=== PATIENT | male | born 1970 | race Hispanic/Latino ===

== ENCOUNTER 2021-12-09 16:19 | Inpatient (IN) | payer OTHER ==
[~2021-12-09] VITALS: Ht 177.8 cm; Wt 98.4 kg
[2021-12-09 17:37] LABS: BASOPHILS # (AUTO) 0.1 (0.0-0.1); EOSINOPHILS # (AUTO) 0.2 (0.0-0.4); EOSINOPHILS % 2.2 % (0.0-6.0); HEMATOCRIT 42.8 % (38.2-49.6); HEMOGLOBIN 13.6 g/dL (14.0-18.0); LYMPHOCYTES # (AUTO) 1.9 (1.0-3.2); LYMPHOCYTES % 20.5 % (18.0-39.1); MEAN CORPUSCULAR HEMOGLOBIN 34.5 pg (28-32); MEAN CORPUSCULAR HGB CONC 31.8 g/dL (31-35); MEAN CORPUSCULAR VOLUME 108.6 fL (81-99); MONOCYTES # (AUTO) 0.6 (0.2-0.8); MONOCYTES % 6.8 % (4.4-11.3); NEUTROPHILS # (AUTO) 6.5 (2.1-6.9); PLATELET COUNT 307 x10e3/uL (140-360); RED BLOOD COUNT 3.94 x10e6/uL (4.3-5.7); RED CELL DISTRIBUTION WIDTH 13.7 % (11.7-14.4)
[2021-12-09 18:02] LABS: LIPASE 20 U/L (8-78)
[2021-12-09 18:04] LABS: ALANINE AMINOTRANSFERASE 53 IU/L (0-55); ALBUMIN 3.4 g/dL (3.5-5.0); ALKALINE PHOSPHATASE 100 IU/L (40-150); ANION GAP 14.3 mmol/L (8-16); BLOOD UREA NITROGEN 6 mg/dL (7-26); BUN/CREATININE RATIO 6 (6-25); CALCIUM 9.3 mg/dL (8.4-10.2); CARBON DIOXIDE 25 mmol/L (22-29); CHLORIDE 107 mmol/L (98-107); CREATINE KINASE 62 IU/L (30-200); CREATININE, SERUM 1.01 mg/dL (0.72-1.25); GLUCOSE 124 mg/dL (74-118); POTASSIUM 4.3 mmol/L (3.5-5.1); SODIUM 142 mmol/L (136-145)
[2021-12-09 18:12] LABS: AMPHETAMINES SCREEN,URINE NEGATIVE (NEGATIVE); BENZODIAZEPINES SCREEN,URINE POSITIVE (NEGATIVE); PHENCYCLIDINE SCREEN,URINE NEGATIVE (NEGATIVE)
[2021-12-09] MEDS: SODIUM CHLORIDE 0.9% 1000ML 1,000 ML IV SCH ×2 (20:05→21:25)
[2021-12-09] MEDS ORDERED: SODIUM CHLORIDE 0.9% 1000ML 1,000 ML IV STA (20:06)
[2021-12-09] MEDS ORDERED: DIAZEPAM INJ 5 MG/ML 2 ML IV ONE (20:15)
[2021-12-09] MEDS: ONDANSETRON HCL INJ 2MG/ML 2ML 2 MG/ML VIAL IV PRN (21:25)
[2021-12-09] MEDS ORDERED: MULTIVITAMINS- 12 INJECTION 10 ML, FOLIC ACID MDV 1 MG, THIAMINE HCL INJ 100 MG in SODI... IV ONE (22:30)
[2021-12-09] MEDS ORDERED: LOSARTAN POTASS25 MG PO (23:21)
[2021-12-09 23:34] VITALS: BP 163/106
[2021-12-10] VITALS (7 sets, daily range): BP systolic 134–163; BP diastolic 83–106
[2021-12-10] MEDS: Morphine 4mg INJECTION 4 MG/ML INJ IV PRN ×4 (01:39→18:05)
[2021-12-10 01:50] LABS: CREATINE KINASE 65 IU/L (30-200)
[2021-12-10] MEDS ORDERED: DIAZEPAM INJ 5 MG/ML 2 ML IV STA (01:54)
[2021-12-10] MEDS ORDERED: METFORMIN HCL500 MG PO (02:01)
[2021-12-10] MEDS ORDERED: AMLODIPINE BESYL5 MG PO (02:01)
[2021-12-10] MEDS ORDERED: LOSARTAN-HCTZ1 EACH PO (02:01)
[2021-12-10] MEDS: HYDRALAZINE HCL 20 MG/ML VIAL IV PRN (02:20)
[2021-12-10 07:24] LABS: BASOPHILS # (AUTO) 0.1 (0.0-0.1); BASOPHILS % 1.1 % (0.0-1.0); EOSINOPHILS # (AUTO) 0.4 (0.0-0.4); EOSINOPHILS % 4.2 % (0.0-6.0); HEMATOCRIT 37.9 % (38.2-49.6); HEMOGLOBIN 12.2 g/dL (14.0-18.0); LYMPHOCYTES % 23.7 % (18.0-39.1); MEAN CORPUSCULAR HEMOGLOBIN 34.7 pg (28-32); MEAN CORPUSCULAR HGB CONC 32.2 g/dL (31-35); MEAN CORPUSCULAR VOLUME 107.7 fL (81-99); MONOCYTES # (AUTO) 0.7 (0.2-0.8); MONOCYTES % 8.3 % (4.4-11.3); NEUTROPHILS # (AUTO) 5.2 (2.1-6.9); NEUTROPHILS % 62.3 % (38.7-80.0); PLATELET COUNT 271 x10e3/uL (140-360); RED BLOOD COUNT 3.52 x10e6/uL (4.3-5.7); RED CELL DISTRIBUTION WIDTH 13.6 % (11.7-14.4)
[2021-12-10 07:30] LABS: ALBUMIN 2.8 g/dL (3.5-5.0); ANION GAP 13.8 mmol/L (8-16); CALCIUM 8.6 mg/dL (8.4-10.2); CREATININE, SERUM 0.82 mg/dL (0.72-1.25); POTASSIUM 3.8 mmol/L (3.5-5.1)
[2021-12-10 10:23] LABS: CREATINE KINASE 77 IU/L (30-200)
[2021-12-10] MEDS: ONDANSETRON HCL INJ 2MG/ML 2ML 2 MG/ML VIAL IV PRN ×2 (10:50→18:06)
[2021-12-10] MEDS ORDERED: IOPAMIDOL 370 MG/ML 100 ML INFUS..BTL INJ ONE (15:43)
[2021-12-10 16:47] LABS: CREATINE KINASE MB 0.6 ng/mL (0-5.0)
[2021-12-10 16:50] LABS: FREE THYROXINE INDEX 1.5773 (1.4-3.8); THYROID STIMULATING HORMONE 6.629 uIU/mL (0.350-4.940)
[2021-12-11] VITALS (9 sets, daily range): BP systolic 125–169; BP diastolic 76–104
[2021-12-11] MEDS: Morphine 4mg INJECTION 4 MG/ML INJ IV PRN ×5 (00:18→21:02)
[2021-12-11 03:14] LABS: % IRON SATURATION 29 % (15-50); IRON 64 ug/dL (65-175); TOTAL IRON BINDING CAPACITY 221 ug/dL (261-478); TRANSFERRIN 158 mg/dL (174-364)
[2021-12-11] MEDS ORDERED: SODIUM CHLORIDE 0.9% 250ML 250 ML ONE (04:59)
[2021-12-11] MEDS: LEVOFLOXACIN 500MG/D5W 100ML 100 ML IV SCH (05:08)
[2021-12-11] MEDS: METRONIDAZOLE 500MG/NS 100ML 100 ML IV SCH ×3 (06:34→17:06)
[2021-12-11 08:16] LABS: INR 0.77; PROTHROMBIN TIME 11.5 seconds (11.9-14.5)
[2021-12-11] MEDS: MULTIVITAMINS- 12 INJECTION 10 ML, FOLIC ACID MDV 1 MG, THIAMINE HCL INJ 100 MG in SODI... IV SCH (09:59)
[2021-12-11] MEDS: ZINC SULFATE 220 MG CAP PO SCH (10:00)
[2021-12-11] MEDS ORDERED: LORAZEPAM INJ 2 MG/ML VIAL IV PRN (10:45)
[2021-12-11] MEDS: CHLORDIAZEPOXIDE HCL 25 MG CAP PO SCH ×2 (11:30→17:06)
[2021-12-12] VITALS (8 sets, daily range): BP systolic 135–157; BP diastolic 86–98
[2021-12-12] MEDS ORDERED: SODIUM CHLORIDE 0.9% 250ML 250 ML ONE (00:09)
[2021-12-12] MEDS: METRONIDAZOLE 500MG/NS 100ML 100 ML IV SCH ×5 (00:10→23:55)
[2021-12-12] MEDS: CHLORDIAZEPOXIDE HCL 25 MG CAP PO SCH ×4 (00:10→21:37)
[2021-12-12] MEDS: Morphine 4mg INJECTION 4 MG/ML INJ IV PRN ×6 (01:25→23:56)
[2021-12-12] MEDS: LEVOFLOXACIN 500MG/D5W 100ML 100 ML IV SCH (04:14)
[2021-12-12] MEDS: MULTIVITAMINS- 12 INJECTION 10 ML, FOLIC ACID MDV 1 MG, THIAMINE HCL INJ 100 MG in SODI... IV SCH (04:57)
[2021-12-12 07:23] LABS: BASOPHILS # (AUTO) 0.1 (0.0-0.1); BASOPHILS % 1.3 % (0.0-1.0); EOSINOPHILS # (AUTO) 0.4 (0.0-0.4); EOSINOPHILS % 5.7 % (0.0-6.0); HEMATOCRIT 40.8 % (38.2-49.6); HEMOGLOBIN 13.1 g/dL (14.0-18.0); LYMPHOCYTES # (AUTO) 2.1 (1.0-3.2); LYMPHOCYTES % 27.6 % (18.0-39.1); MEAN CORPUSCULAR HEMOGLOBIN 34.9 pg (28-32); MEAN CORPUSCULAR HGB CONC 32.1 g/dL (31-35); MEAN CORPUSCULAR VOLUME 108.8 fL (81-99); MONOCYTES # (AUTO) 0.7 (0.2-0.8); MONOCYTES % 9.4 % (4.4-11.3); NEUTROPHILS # (AUTO) 4.3 (2.1-6.9); NEUTROPHILS % 55.4 % (38.7-80.0); PLATELET COUNT 272 x10e3/uL (140-360); RED BLOOD COUNT 3.75 x10e6/uL (4.3-5.7); RED CELL DISTRIBUTION WIDTH 13.2 % (11.7-14.4)
[2021-12-12 07:58] LABS: ALBUMIN 2.9 g/dL (3.5-5.0); ALBUMIN/GLOBULIN RATIO 0.9 (0.8-2.0); ANION GAP 15.1 mmol/L (8-16); CALCIUM 8.8 mg/dL (8.4-10.2); CREATININE, SERUM 0.82 mg/dL (0.72-1.25); MAGNESIUM 1.8 MG/DL (1.3-2.1); PHOSPHORUS 4.5 MG/DL (2.3-4.7); POTASSIUM 4.1 mmol/L (3.5-5.1)
[2021-12-12] MEDS: IRON SUCROSE 100 MG in SODIUM CHLORIDE 0.9% 100 ML IV SCH (09:55)
[2021-12-12] MEDS: ZINC SULFATE 220 MG CAP PO SCH (09:55)
[2021-12-13] VITALS (8 sets, daily range): BP systolic 123–156; BP diastolic 80–101
[2021-12-13] MEDS: HYDRALAZINE HCL 20 MG/ML VIAL IV PRN (00:31)
[2021-12-13] MEDS: MULTIVITAMINS- 12 INJECTION 10 ML, FOLIC ACID MDV 1 MG, THIAMINE HCL INJ 100 MG in SODI... IV SCH ×2 (01:28→18:00)
[2021-12-13] MEDS: LEVOFLOXACIN 500MG/D5W 100ML 100 ML IV SCH (04:44)
[2021-12-13] MEDS: Morphine 4mg INJECTION 4 MG/ML INJ IV PRN ×6 (04:52→22:15)
[2021-12-13 05:49] LABS: BASOPHILS # (AUTO) 0.1 (0.0-0.1); EOSINOPHILS # (AUTO) 0.5 (0.0-0.4); EOSINOPHILS % 5.8 % (0.0-6.0); LYMPHOCYTES # (AUTO) 2.2 (1.0-3.2); LYMPHOCYTES % 26.9 % (18.0-39.1); MEAN CORPUSCULAR HEMOGLOBIN 34.9 pg (28-32); MEAN CORPUSCULAR HGB CONC 32.5 g/dL (31-35); MEAN CORPUSCULAR VOLUME 107.2 fL (81-99); MONOCYTES # (AUTO) 0.7 (0.2-0.8); MONOCYTES % 9.1 % (4.4-11.3); NEUTROPHILS # (AUTO) 4.6 (2.1-6.9); NEUTROPHILS % 56.5 % (38.7-80.0); PLATELET COUNT 281 x10e3/uL (140-360); RED BLOOD COUNT 3.73 x10e6/uL (4.3-5.7)
[2021-12-13] MEDS: METRONIDAZOLE 500MG/NS 100ML 100 ML IV SCH ×4 (05:53→23:53)
[2021-12-13] MEDS: CHLORDIAZEPOXIDE HCL 25 MG CAP PO SCH ×2 (05:59→13:38)
[2021-12-13 06:20] LABS: ALBUMIN/GLOBULIN RATIO 0.9 (0.8-2.0); ANION GAP 14.8 mmol/L (8-16); CALCIUM 8.9 mg/dL (8.4-10.2); CREATININE, SERUM 0.81 mg/dL (0.72-1.25); POTASSIUM 3.8 mmol/L (3.5-5.1)
[2021-12-13 06:28] LABS: BACTERIA,URINE FEW /HPF; CLARITY,URINE CLEAR (CLEAR); COLOR,URINE YELLOW (YELLOW); EPITHELIAL CELLS,URINE FEW /LPF; KETONES,URINE NEGATIVE (NEGATIVE); LEUKOCYTE ESTERASE ,URINE NEGATIVE (NEGATIVE); NITRITE,URINE NEGATIVE (NEGATIVE); PROTEIN,URINE DIPSTICK NEGATIVE (NEGATIVE); RBC,URINE 0-5 /HPF (0-5); URINE UROBILINOGEN 0.2 mg/dL (0.2 - 1); WBC,URINE (MAN) 0-5 /HPF (0-5)
[2021-12-13] MEDS: ONDANSETRON HCL INJ 2MG/ML 2ML 2 MG/ML VIAL IV PRN ×4 (09:23→22:15)
[2021-12-13] MEDS: ZINC SULFATE 220 MG CAP PO SCH (09:25)
[2021-12-13] MEDS: IRON SUCROSE 100 MG in SODIUM CHLORIDE 0.9% 100 ML IV SCH (09:25)
[2021-12-13] MEDS: THIAMINE HCL 100 MG TAB PO SCH (09:30)
[2021-12-14] VITALS (8 sets, daily range): BP systolic 130–154; BP diastolic 88–101
[2021-12-14] MEDS ORDERED: DOCUSATE SODIUM 100 MG CAP PO ONE
[2021-12-14] MEDS: ONDANSETRON HCL INJ 2MG/ML 2ML 2 MG/ML VIAL IV PRN ×2 (02:15→06:36)
[2021-12-14] MEDS: Morphine 4mg INJECTION 4 MG/ML INJ IV PRN ×5 (02:15→21:25)
[2021-12-14] MEDS: LEVOFLOXACIN 500MG/D5W 100ML 100 ML IV SCH (04:30)
[2021-12-14 05:45] LABS: BASOPHILS # (AUTO) 0.1 (0.0-0.1); BASOPHILS % 0.8 % (0.0-1.0); EOSINOPHILS # (AUTO) 0.5 (0.0-0.4); EOSINOPHILS % 5.5 % (0.0-6.0); HEMATOCRIT 41.7 % (38.2-49.6); HEMOGLOBIN 13.5 g/dL (14.0-18.0); LYMPHOCYTES # (AUTO) 2.7 (1.0-3.2); LYMPHOCYTES % 32.4 % (18.0-39.1); MEAN CORPUSCULAR HEMOGLOBIN 34.7 pg (28-32); MEAN CORPUSCULAR HGB CONC 32.4 g/dL (31-35); MEAN CORPUSCULAR VOLUME 107.2 fL (81-99); MONOCYTES # (AUTO) 0.7 (0.2-0.8); MONOCYTES % 8.3 % (4.4-11.3); NEUTROPHILS # (AUTO) 4.4 (2.1-6.9); NEUTROPHILS % 52.6 % (38.7-80.0); PLATELET COUNT 332 x10e3/uL (140-360); RED BLOOD COUNT 3.89 x10e6/uL (4.3-5.7); RED CELL DISTRIBUTION WIDTH 13.2 % (11.7-14.4)
[2021-12-14 06:11] LABS: ALBUMIN 3.3 g/dL (3.5-5.0); ALBUMIN/GLOBULIN RATIO 0.9 (0.8-2.0); ANION GAP 16.1 mmol/L (8-16); CALCIUM 8.9 mg/dL (8.4-10.2); CREATININE, SERUM 0.93 mg/dL (0.72-1.25); MAGNESIUM 1.9 MG/DL (1.3-2.1); POTASSIUM 4.1 mmol/L (3.5-5.1)
[2021-12-14] MEDS: METRONIDAZOLE 500MG/NS 100ML 100 ML IV SCH ×3 (06:19→16:52)
[2021-12-14] MEDS: DOCUSATE SODIUM 100 MG CAP PO SCH ×2 (08:59→16:52)
[2021-12-14] MEDS: THIAMINE HCL 100 MG TAB PO SCH (08:59)
[2021-12-14] MEDS: ZINC SULFATE 220 MG CAP PO SCH (08:59)
[2021-12-14] MEDS: IRON SUCROSE 100 MG in SODIUM CHLORIDE 0.9% 100 ML IV SCH (10:08)
[2021-12-14] MEDS ORDERED: LIDOCAINE HCL 1% LOCAL INJ 20 ML VIAL ONE (14:07)
[2021-12-14] MEDS ORDERED: GADOBENATE DIMEGLUMINE 1 ML IV ONE (14:18)
[2021-12-14] MEDS ORDERED: IOPAMIDOL 370 MG/ML 100 ML INFUS..BTL INJ ONE (18:56)
[2021-12-14] MEDS ORDERED: SODIUM CHLORIDE 0.9% 100 ML ONE (18:56)
[2021-12-15] VITALS (9 sets, daily range): BP systolic 121–154; BP diastolic 77–105
[2021-12-15] MEDS: METRONIDAZOLE 500MG/NS 100ML 100 ML IV SCH ×4 (00:22→16:26)
[2021-12-15] MEDS: MULTIVITAMINS- 12 INJECTION 10 ML, FOLIC ACID MDV 1 MG, THIAMINE HCL INJ 100 MG in SODI... IV SCH (01:25)
[2021-12-15] MEDS: Morphine 4mg INJECTION 4 MG/ML INJ IV PRN ×4 (01:27→16:25)
[2021-12-15] MEDS: LEVOFLOXACIN 500MG/D5W 100ML 100 ML IV SCH (05:10)
[2021-12-15] MEDS: IRON SUCROSE 100 MG in SODIUM CHLORIDE 0.9% 100 ML IV SCH (09:16)
[2021-12-15] MEDS: THIAMINE HCL 100 MG TAB PO SCH (09:19)
[2021-12-15] MEDS: DOCUSATE SODIUM 100 MG CAP PO SCH ×2 (09:19→16:20)
[2021-12-15] MEDS: ZINC SULFATE 220 MG CAP PO SCH (09:19)
[2021-12-15 16:54] LABS: APPEARANCE,CSF CLEAR (CLEAR); COLOR,CSF COLORLESS (COLORLESS); TUBE NUMBER 4; WHITE BLOOD CELL,CSF 1 cells/uL (0-5)
[2021-12-17 15:13] LABS: IGG/ALB RATIO CSF 0.14 (0.00-0.25)
[2021-12-17 18:52] LABS: CSF/SERUM ALBUMIN INDEX 17 (0-8)
== END 2021-12-15 18:45 | disposition home or self-care (01) | DRG 897 ==
LOC: ER 16:35 → ERHOLD 19:06 → MED/SURG2 22:59 → OBSVTOIN 12-11 11:33
PROC: 009U3ZX Drainage of Spinal Canal, Percutaneous Approach, Diagnostic (ICD-10-PCS; principal; 2021-12-15)
DX: F10.231 Alcohol dependence with withdrawal delirium (principal); E51.9 Thiamine deficiency, unspecified; K57.20 Diverticulitis of large intestine with perforation and abscess without bleeding; G37.2 Central pontine myelinolysis; E72.20 Disorder of urea cycle metabolism, unspecified; G72.1 Alcoholic myopathy; R18.8 Other ascites; K72.90 Hepatic failure, unspecified without coma; F10.288 Alcohol dependence with other alcohol-induced disorder; Y90.0 Blood alcohol level of less than 20 mg/100 ml; R29.6 Repeated falls; E11.40 Type 2 diabetes mellitus with diabetic neuropathy, unspecified; G62.1 Alcoholic polyneuropathy; Z74.09 Other reduced mobility; R60.0 Localized edema; R53.81 Other malaise; Z20.822 Contact with and (suspected) exposure to COVID-19; I10 Essential (primary) hypertension; E66.01 Morbid (severe) obesity due to excess calories; Z68.31 Body mass index [BMI] 31.0-31.9, adult; K74.60 Unspecified cirrhosis of liver
CPT/HCPCS: 0223U; 36415; 62328; 70450; 70496; 70498; 70551; 70553; 71045; 72156; 74177; 74470; 80053; 80307; 80320; 81001; 82040; 82105; 82140; 82550; 82553; 82607; 82746; 82784; 82945; 82948; 83036; 83520; 83540; 83690; 83735; 83880; 83916; 84100; 84157; 84207; 84425; 84436; 84443; 84466; 84479; 84484; 85025; 85045; 85379; 85610; 85651; 86140; 86592; 86789; 87070; 87205; 87476; 89051; 93005; 93306; 96361; 99284; G0378; J0360; J1756; J1956; J2001; J2270; J2405; J3360; J3411; J7030; J7050; Q9967